=== PATIENT | male | born 1995 | race Two or more races ===

== ENCOUNTER 2022-02-17 16:34 | Emergency (ER) | payer MEDICAID, SELFPAY ==
[2022-02-17 17:07] VITALS: BP 142/107; PULSE 82; RESP 18; TEMP 36.6; O2SAT 98; BMI 30.4
--- NOTE | 2022-02-17 20:57 | ED_ITS ---
HPI - General Adult General Chief complaint: General Medical Stated complaint: Genital Issue/ Burn Time Seen by Provider: 02/17/22 20:57 Source: patient Mode of arrival: ambulatory Limitations: no limitations History of Present Illness HPI narrative: 26-year-old male presents for evaluation for painful open lesions on the shaft of his penis. Onset (ago): day(s) (4) Location: genitals Radiation: non-radiation Severity: moderate Severity scale (1-10): 6 Quality: burning Pain Consistency: constant Relieving factors: none Associated symptoms: denies other symptoms Related Data Previous Rx's Medication Instructions Recorded doxycycline monohydrate 100 mg 100 mg PO BID 14 days #28 tabs 02/17/22 tablet valacyclovir 1 gram tablet 1,000 mg PO DAILY #30 tabs 02/17/22 valacyclovir 1 gram tablet 1,000 mg PO Q12H 10 days #20 tabs 02/17/22 Allergies Allergy/AdvReac Type Severity Reaction Status Date / Time No Known Allergies Allergy Verified 02/17/22 17:11 Review of Systems Review of Systems: Constitutional: No Fever, No Chills Cardiovascular: No Chest Pain, No SOB Respiratory: No Cough, No Dyspnea Gastrointestinal: No Nausea, No Vomiting, No Diarrhea, No abdominal Pain Genitourinary: Positive painful genital lesions, No Dysuria, No Hematuria Skin: No Skin lacerations, No rash Neuro: No Weakness, No Numbness, No Paresthesias Yes all other systems are reviewed and are negative [facility] Past Medical History Attestation statement: The following information was validated with the patient. Source: old records reviewed Social History Social History Advance Directives: No Advance Directives Information Provided: No Physical Exam ED Vital Signs: Vital Signs - 24 hr 02/17/22 17:07 Temperature 97.8 F Pulse Rate 82 Respiratory Rate 18 Blood Pressure 142/107 H Pulse Oximetry 98 Oxygen Delivery Method Room Air BMI result Body Mass Index 30.4 Appearance: Alert. Oriented X3. No acute distress. Eyes: Pupils equal, round and reactive to light. ENT: Pharynx normal. Neck: Normal inspection. Neck supple. CVS: Normal heart rate and rhythm. Respiratory: No respiratory distress. Skin: Multiple open lesions to the shaft of the penis consistent with herpes Extremities: Gait balance and coordinated. Neuro: No motor deficit. No sensory deficit. Cranial nerves 2-12 intact. Course Course Course Narrative: 26-year-old male presents with several days of open painful lesions to the shaft of his penis. Visual examination indicates rash consistent with genital herpes. Patient does not report testicular pain, testicular exam is normal. Plan of care is to treat for STIs including coverage for syphilis with doxycycline for 14 days. Will treat with ceftriaxone 500 mg IM, and give valacyclovir twice a day for 10 days and give maintenance dosing. 21:06 patient's partner treated. Patient understands that this will be a chronic condition and that he will need to maintain safe sex practices to prev ent spreading. Patient verbalized understanding of and agrees to plan of care discharge home. Verbalized understanding of signs symptoms indicating need for emergent intervention. Medications Administered Discontinued Medications Generic Name Dose Route Start Last Admin Trade Name Freq PRN Reason Stop Dose Admin Ceftriaxone Sodium 500 mg/ 0 mg 02/17/22 21:04 02/17/22 21:35 Lidocaine HCl 1 ml IM 02/17/22 21:05 1 kit ONCE ONE Administration Doxycycline Monohydrate 100 mg 02/17/22 21:04 02/17/22 21:36 Doxycycline Monohydrate 100 Mg Capsule PO 02/17/22 21:05 100 mg ONCE ONE Administration Valacyclovir HCl 1,000 mg 02/17/22 21:04 02/17/22 21:36 Valacyclovir Hcl 1,000 Mg Tablet PO 02/17/22 21:05 1,000 mg ONCE ONE Administration Medical Decision Making Differential Diagnosis Differential Diagnoses: The differential diagnosis associated with the presentation includes Herpes, syphilis, gonorrhea, chlamydia Admission/Observation Consideration of admission/observation: Escalation of care including admission/observation considered Admission not considered for this patient External Record Review External record reviewed: Outpatient record Prescription Management I considered prescription management with: Antiviral and Antibiotic Discharge Plan Discharge Clinical Impression: Herpes genitalia, STI (sexually transmitted infection) Patient Disposition: Home, Self-Care Instructions: Sexually Transmitted Diseases (ED) Additional Instructions: Your evaluated for sexually transmitted infection. Please take valacyclovir 1000 mg twice a day for the next 10 days. Then take valacyclovir once daily for maintenance. Take doxycycline 100 mg twice a day for the next 14 days. This medication will cover you for syphilis, gonorrhea and chlamydia. You must complete the entire course of this medication. You were also treated for chlamydia and gonorrhea with ceftriaxone and doxycycline in the emergency department. Follow-up with [facility] for repeat testing. Refrain from sexual activity until symptoms clear. Thank you for choosing this emergency department for evaluation. Please follow-up with primary care physician as needed. Return to the emergency department for any new, concerning, or worsening symptoms. Prescriptions: New doxycycline monohydrate 100 mg tablet 100 mg PO BID 14 Days Qty: 28 0RF valacyclovir 1 gram tablet 1,000 mg PO Q12H 10 Days Qty: 20 0RF valacyclovir 1 gram tablet 1,000 mg PO DAILY Qty: 30 2RF Rx Instructions: Start this medication after the 10 day b.i.d. prescription. Interventions: ED Discharge Assessment Last Done: 02/17/22 21:39 Discharge Date/Time: 02/17/22 21:40
[2022-02-17] MEDS: cefTRIAXone sodium 500 MG, Lidocaine HCl 1 % MPF 1 ML IM (21:35)
[2022-02-17] MEDS: Doxycycline Monohydrate 100 MG CAPSULE PO (21:36)
[2022-02-17] MEDS: valACYclovir HCL 1,000 MG TABLET 1000 MG PO (21:36)
[2022-02-18 11:05] LABS: CT PCR NOT DETECTED (Not Detect.); NG PCR NOT DETECTED (Not Detect.)
== END 2022-02-17 21:40 | disposition home or self-care (01) ==
PROVIDERS: Emergency Provider Emergency Medicine
DX: B00.9 Herpesviral infection, unspecified (principal); A64 Unspecified sexually transmitted disease; Z79.899 Other long term (current) drug therapy
CPT/HCPCS: 0353U; 96372; 99282; 99284; J0696

== ENCOUNTER 2022-08-26 14:00 | Outpatient (AMB) | payer MEDICAID, SELFPAY ==
[2022-08-26 14:36] VITALS: BP 110/86; PULSE 78; O2SAT 98
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
== END 2022-08-26 15:22 | disposition home or self-care (01) ==
LOC: HO.HCC 14:00
PROVIDERS: Visit Provider Nurse Practitioner Psychiatric/Mental Health
DX: F10.20 Alcohol dependence, uncomplicated (principal)
CPT/HCPCS: 99204

== ENCOUNTER → 2022-08-26 14:00 | Outpatient (BNVA) | payer MEDICAID, SELFPAY | PROVIDERS: Visit Provider Nurse Practitioner Psychiatric/Mental Health | DX: F10.20 Alcohol dependence, uncomplicated (principal) | CPT/HCPCS: 80305; 99204 ==

== ENCOUNTER 2023-01-07 00:16 | Inpatient (IN) | payer MEDICAID, SELFPAY ==
[2023-01-07] VITALS (7 sets, daily range): BP systolic 125–152; BP diastolic 75–90; PULSE 88–101; RESP 14–20; TEMP 36.6–37; O2SAT 95–98; BMI 30.4
--- NOTE | ~2023-01-07 | XR_ITS ---
EXAMINATION: XR FEMUR, RIGHT XR KNEE, RIGHT CLINICAL INDICATION: Trauma, injury COMPARISON: None TECHNIQUE: 2 views of the right femur. 2 views of the right knee. FINDINGS: Alignment across the hip appears anatomic. There is a comminuted fracture of the distal femoral shaft with moderate displacement of fragments. Surrounding soft tissue swelling. Suboptimal assessment for alignment at the knee due to positioning. XR/XR femur RT 2V IMPRESSION: Comminuted displaced fracture of the distal femoral shaft.
--- NOTE | ~2023-01-07 | XR_ITS ---
EXAMINATION: XR FEMUR, RIGHT XR KNEE, RIGHT CLINICAL INDICATION: Trauma, injury COMPARISON: None TECHNIQUE: 2 views of the right femur. 2 views of the right knee. FINDINGS: Alignment across the hip appears anatomic. There is a comminuted fracture of the distal femoral shaft with moderate displacement of fragments. Surrounding soft tissue swelling. Suboptimal assessment for alignment at the knee due to positioning. XR/XR knee RT 2V IMPRESSION: Comminuted displaced fracture of the distal femoral shaft.
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
[2023-01-07] MEDS: Ibuprofen 600 MG TABLET PO (00:29)
--- OUTSIDE RECORDS SUMMARY | 2023-01-07 01:08 | XMS_ITS | Continuity of Care Document ---
Author Name Unknown Organization [facility] Address [address] [place] [address]- Care Team Providers Care All Purpose Clerk Name Role Phone Not on Staff, PCP Primary Care Physician Unavail able Encounter [facility] Date(s): 04/03/22 - 04/03/22 [facility] [address] [place] [address]- Encounter Diagnosis Tylenol ingestion(Final) - 04/03/22 Nausea with vomiting(Final) - 04/03/22 Tibia fracture(Final) - 04/03/22 Leg pain(Final) - 04/03/22 Discharge Disposition: A-D/C Home Attending Physician: Gabrielle Whitfield MD Admitting Physician: Gabrielle Whitfield MD Referring Physician: Not on Staff, Referring MD Allergies, Adverse Reactions, Alerts No Known Allergies Medications Dilaudid Inj 1 mg, Injection, IV Push Slowly, Every 4 hours, PRN for Pain , Severe, Routine, 04/03/22 17:35:00 EST Start Date: 04/03/22 Stop Date: 04/04/22 Status: Discontinued ibuprofen 600 mg oral tablet 1 tablet = 600 mg, By Mouth, Every 6 hours, # 40 tablet, 1 Refills, Maintenance, Tablet Start Date: 02/24/12 Status: Ordered oxyCODONE 5 mg oral capsule 1 capsule = 5 mg, By Mouth, Every 6 hours, PRN as needed for pain, # 19 capsule, 0 Refills, Acute 04/10/22 18:19:00 EST, 04/03/22 18:18:00 EST, Capsule, Partial fill upon patient request if the prescription is for a schedule II opioid drug. Start Date: 04/03/22 Stop Date: 04/10/22 Status: Ordered oxyCODONE 5 mg oral tablet 5 mg, 1, tablet, By Mouth, Every 4 hours, PRN, # 18 tablet, Refills 0, Tot. Refills 0, Maintenance,Pain , Severe, 03/29/22 20:06:00 EST, Route to Pharmacy Electronically, [facility]/pharmacy #[id number], Partialfill upon patient request if the prescription is fo... Start Date: 03/29/22 Status: Ordered Tylenol 325 mg oral capsule 2 capsule = 650 mg, By Mouth, Every 4 hours, # 90 capsule, 0 Refills, Maintenance, 10/28/15 15:04:19 Start Date: 10/28/15 Status: Ordered Problem List Condition Confirmation Course Effective Dates Status Health St atus Informant Obese class I Confirmed Active Results Radiology Reports * Exam Date Time Procedure Performing Provider Status 04/03/22 2:56 PM Ankle Min 3 Views Left Alia Pérez (Verified) Notes: (Ankle Min 3 Views Left) Reason For Exam: Pain RESULT: Ankle Min 3 Views Left Tibia/Fibula 2 Views Left, Ankle Min 3 Views Left INDICATION: Left lower extremity pain with known fracture. COMPARISON: Left knee radiograph 03/29/2022. FINDINGS: TIBIA/FIBULA: Minimally displaced fracture involving the tibial spine appears similar to prior. Partially visualized at least small joint effusion, decreased when compared to prior. Normal soft tissues. ANKLE: No evidence of acute or healing fracture or bone lesion. Os peroneum, a normal variant. Intact ankle mortise and talar dome. No arthritic changes. Normal soft tissues. IMPRESSION: Unchanged minimally displaced fracture involving the tibial spine. No new fractures or acute osseous abnormality. I have personally reviewed the images and I agree with this report. WSN: [id number] Ordering Physician: Gabrielle Whitfield Dictated By: Tom Armstrong MD Dictated Date/Time: 04/03/22 3:08 pm Reviewed By: Zion Muller MD Signed By: Zion Muller MD Signed Date/Time: 04/03/22 3:13 pm Transcribed By: NITIN Transcribed Date/Time: 04/03/22 3:05 pm * Exam Date Time Procedure Performing Provider Status 04/03/22 2:56 PM Tibia/Fibula 2 Views Left Lynsey Pérez (Verified) Notes: (Tibia/Fibula 2 Views Left) Reason For Exam: Pain RESULT: Tibia/Fibula 2 Views Left Tibia/Fibula 2 Views Left, Ankle Min 3 Views Left INDICATION: Left lower extremity pain with known fracture. COMPARISON: Left knee radiograph 03/29/2022. FINDINGS: TIBIA/FIBULA: Minimally displaced fracture involving the tibial spine appears similar to prior. Partially visualized at least small joint effusion, decreased when compared to prior. Normal soft tissues. ANKLE: No evidence of acute or healing fracture or bone lesion. Os peroneum, a normal variant. Intact ankle mortise and talar dome. No arthritic changes. Normal soft tissues. IMPRESSION: Unchanged minimally displaced fracture involving the tibial spine. No new fractures or acute osseous abnormality. I have personally reviewed the images and I agree with this report. WSN: [id number] Ordering Physician: Gabrielle Whitfield Dictated By: Tom Armstrong MD Dictated Date/Time: 04/03/22 3:08 pm Reviewed By: Zion Muller MD Signed By: Zion Muller MD Signed Date/Time: 04/03/22 3:13 pm Transcribed By: NITIN Transcribed Date/Time: 04/03/22 3:05 pm Vital Signs Most recent to oldest [Reference Range]: 1 2 3 Height 170 cm (04/03/22 2:15 PM) 170 cm (04/03/22 2:13 PM) Weight 90.8 kg (04/03/22 2:15 PM) 90.8 kg (04/03/22 2:13 PM) Oxygen Saturation [94-100 %] 98 % (04/03/22:23 PM) 99 % (04/03/22 5:00 PM) 99 % (04/03/22 3:30 PM) Pulse Rate [55-90 bpm] 66 bpm (04/03/22:23 PM) 71 bpm (04/03/22 5:00 PM) 73 bpm (04/03/22 3:30 PM) Body Mass Index [18.5-24.99 kg/m2] 31.42 kg/m2 *>HHI* (04/03/22 2:13 PM) Blood Pressure [90-138/55-84 mm Hg] 136/95mm Hg (04/03/22 6:23 PM) 132/93mm Hg (04/03/22 5:00 PM) 138/91mm Hg (04/03/22 3:30 PM) Respiratory Rate [16-30 br/min] 17 br/min (04/03/22:23 PM) 20 br/min (04/03/22 5:06 PM) 20 br/min (04/03/22 5:00 PM) Temperature [96.8-100.4 DegF] 98.0 DegF (04/03/22 6:23 PM) 98.0 DegF (04/03/22 5:00 PM) 98.0 DegF (04/03/22 3:30 PM) Mode of Delivery (Oxygen) Room air (04/03/22 6:23 PM) Room air (04/03/22 5:00 PM) Room air (04/03/22 3:30 PM) Blood pressure sites Arm, right (04/03/22 6:23 PM) Arm, right (04/03/22 5:00 PM) Arm, right (04/03/22 3:30 PM) Temperature Route Oral (04/03/22 6:23 PM) Oral (04/03/22 5:00 PM) Oral (04/03/22 3:30 PM) Dry Weight 90.8 kg (04/03/22 2:15 PM) 90.8 kg (04/03/22 2:13 PM) Weight Obtained Via Patient/family state d (04/03/22 2:13 PM) XR Ankle - left GE 3 Views * [facility] , CIS S: TRANSCRIBE Renzo SHIRLEY, Zion W: VERIFY Tom Armstrong MD: SIGN Event Display: Result: Authored Date: [id number] Tibia/Fibula 2 Views Left, Ankle Min 3 Views Left INDICATION: Left lower extremity pain with known fracture. COMPARISON: Left knee radiograph 03/29/2022. FINDINGS: TIBIA/FIBULA: Minimally displaced fracture involving the tibial spine appears similar to prior. Partially visualized at least small joint effusion, decreased when compared to prior. Normal soft tissues. ANKLE: No evidence of acute or healing fracture or bone lesion. Os peroneum, a normal variant. Intact ankle mortise and talar dome. No arthritic changes. Normal soft tissues. IMPRESSION: Unchanged minimally displaced fracture involving the tibial spine. No new fractures or acute osseous abnormality. I have personally reviewed the images and I agree with this report. WSN: [id number] Ordering Physician: Gabrielle Whitfield Dictated By: Tom Armstrong MD Dictated Date/Time: 04/03/22 3:08 pm Reviewed By: Zion Muller MD Signed By: Zion Muller MD Signed Date/Time: 04/03/22 3:13 pm Transcribed By: NITIN Transcribed Date/Time: 04/03/22 3:05 pm XR Tibia and Fibula - left 2 Views * [facility] , CIS S: TRANSCRIBE Zion Muller MD: VERIFY Tom Armstrong MD: SIGN Event Display: Result: Authored Date: [id number] Tibia/Fibula 2 Views Left, Ankle Min 3 Views Left INDICATION: Left lower extremity pain with known fracture. COMPARISON: Left knee radiograph 03/29/2022. FINDINGS: TIBIA/FIBULA: Minimally displaced fracture involving the tibial spine appears similar to prior. Partially visualized at least small joint effusion, decreased when compared to prior. Normal soft tissues. ANKLE: No evidence of acute or healing fracture or bone lesion. Os peroneum, a normal variant. Intact ankle mortise and talar dome. No arthritic changes. Normal soft tissues. IMPRESSION: Unchanged minimally displaced fracture involving the tibial spine. No new fractures or acute osseous abnormality. I have personally reviewed the images and I agree with this report. WSN: [id number] Ordering Physician: Gabrielle Whitfield Dictated By: Tom Armstrong MD Dictated Date/Time: 04/03/22 3:08 pm Reviewed By: Zion Muller MD Signed By: Zion Muller MD Signed Date/Time: 04/03/22 3:13 pm Transcribed By: NITIN Transcribed Date/Time: 04/03/22 3:05 pm Patient Care team information Care Team Personnel Name: Not on Staff, PCP Position: [facility] Physician (General Medicine) Member Role: PCP Name: Gabrielle Whitfield MD Position: [facility] ED Medicine MD Member Role: Admitting Physician Address: Address: [address] [place] [address] [place] [address]- Name: Nikki Sosa RN Position: [facility] ED RN W/OE and Tasks Member Role: Patient Care Provider Care Team Related Persons Name: NO, ONE Name: OLIVER LIMA Address: home [address] [place] [id number]
--- OUTSIDE RECORDS SUMMARY | 2023-01-07 01:08 | XMS_ITS | Continuity of Care Document ---
Author Name Unknown Organization [facility] ter Address [address] [place] [address]- Care Team Providers Care Hvac Service Manager Name Role Phone Not on Staff, PCP Primary Care Physician Unavail able Encounter [facility] Date(s): 11/25/22 - 11/26/[address] [address]- Discharge Disposition: A-D/C Walkout Attending Physician: Not on Staff, Attending MD Admitting Physician: Not on Staff, Admitting MD Referring Physician: Not on Staff, Referring MD Allergies, Adverse Reactions, Alerts No Known Allergies Medications ibuprofen 600 mg oral tablet 1 tablet = 600 mg, By Mouth, Every 6 hours, # 40 tablet, 1 Refills, Maintenance, Tablet Start Date: 02/24/12 Status: Ordered oxyCODONE 5 mg oral tablet 5 mg, 1, tablet, By Mouth, Every 4 hours, PRN, # 18 tablet, Refills 0, Tot. Refills 0, Maintenance,Pain , Severe, 03/29/22 20:06:00 EST, Route to Pharmacy Electronically, [facility]/pharmacy #[id number], Partialfill upon patient request if the prescription is fo... Start Date: 03/29/22 Status: Ordered Tylenol 325 mg oral capsule 2 capsule = 650 mg, By Mouth, Every 4 hours, # 90 capsule, 0 Refills, Maintenance, 10/28/15 15:04:19 Start Date: 10/28/15 Status: Ordered Problem List Condition Confirmation Course Effective Dates Status Health St atus Informant Obese class I Confirmed Active Vital Signs Most recent to oldest [Reference Range]: 1 Oxygen Saturation [94-100 %] 96 % (11/26/22 12:06 AM) Pulse Rate [55-90 bpm] 124 bpm *H* (11/26/22 12:06 AM) Mode of Delivery (Oxygen) Room air (11/26/22 12:06 AM) Patient Care team information Care Team Personnel Name: Not on Staff, PCP Position: S Physician (General Medicine) Member Role: PCP Care Team Related Persons Name: NO, ONE Name: OLIVER LIMA Address: [address] [address]
--- OUTSIDE RECORDS SUMMARY | 2023-01-07 01:08 | XMS_ITS | Continuity of Care Document ---
Author Name Unknown Organization [facility] Address [address] [place] [address]- Care Team Providers Care Porter Luggage Name Role Phone Not on Staff, PCP Primary Care Physician Unavail able Encounter [facility] Date(s): 11/29/22 - 11/30/[address] [address]- Discharge Disposition: A-D/C Home Attending Physician: Marcin Motley MD Admitting Physician: Marcin Motley MD Referring Physician: Not on Staff, Referring [...] 03/29/22 20:06:00 EST, Route to Pharmacy Electronically, [facility]/pharmacy #[id number], Partialfill upon patient request [...] oldest [Reference Range]: 1 2 3 Height 173 cm (11/29/22 10:22 PM) 173 cm (11/29/22 10:16 PM) 173 cm (11/29/22 10:15 PM) Weight 97 kg (11/29/22 10:16 PM) Oxygen Saturation [94-100 %] 97 % (11/29/22 11:00 PM) 97 % (11/29/22 10:22 PM) 97 % (11/29/22 10:16 PM) Pulse Rate [55-90 bpm] 90 bpm (11/29/22 11:21 PM) 120 bpm *H* (11/29/22 10:22 PM) 124 bpm *H* (11/29/22 10:15 PM) Blood Pressure [90-138/55-84 mm Hg] 141/89mm Hg *H* (11/29/22 11:00 PM) 157/104mm Hg *H* (11/29/22 10:22 PM) Respiratory Rate [16-30 br/min] 18 br/min (11/29/22 11:00 PM) 20 br/min (11/29/22 10:22 PM) 18 br/min (11/29/22 10:15 PM) Temperature [96.8-100.4 DegF] 98.6 DegF (11/29/22 11:00 PM) 98.3 DegF (11/29/22 10:16 PM) Mode of Delivery (Oxygen) Room air (11/29/22 11:00 PM) Room air (11/29/22 10:22 PM) Room air (11/29/22 10:15 PM) Blood pressure sites Arm, right (11/29/22 11:00 PM) Arm, right (11/29/22 10:22 PM) Temperature Route Oral (11/29/22 11:00 PM) Temporal (11/29/22 10:16 PM) Dry Weight 97 kg (11/29/22 10:16 PM) Dry Weight Obtained Via Standing scale (11/29/22 10:16 PM) Note * Jesus SHIRLEY, Estefania Barnard: PERFORM Event Display: Patient Education Leaflets Authored Date: [id number] Alcohol Abuse ?? [id number] Alcohol Abuse Alcoholic drinks harm you when you have too many of them. No set number of drinks means too much. Drinking that affects your life or your health is called alcohol abuse. Alcohol abuse can hurt your relationships with others. You may lose friends, a spouse, or even your job. You may be abusing alcohol if any of the following are true for you: ??? Duties at home or with child guidance counselor suffer because of drinking. ??? Duties at work or in school suffer because of drinking. ??? You have missed work or school because of drinking. ??? You use alcohol while driving or using machinery. ??? You have legal problems such as arrests because of drinking. ??? You keep drinking even though it causes serious problems in your life. Health problems Alcohol abuse causes many health problems.??Sometimes this can happen after only drinking a ???little. ??The effects depend on how much you drink at one time and how often you drink. The effects also depend on how long you drink. For example, months, years, or decades.??Alcohol affects all parts of your body Brain Alcohol affects the central nervous system. It can damage parts of the brain that control your balance and gait, memory, thinking, and emotions. It can cause: ??? Memory loss ??? Blackouts ??? Depression ??? Agitation ??? Sleep problems ??? Seizures These changes may be lobsterman (permanent). Heart and blood vessels Alcohol can damage heart muscle (cardiomyopathy). This can lead to: ??? Trouble breathing ??? Irregular heartbeat ??? Atrial fibrillation ??? Leg swelling ??? Heart failure Alcohol also makes the blood vessels stiff. This causes high blood pressure. All of these problems raise your risk of having a heart attack or stroke. Liver Alcohol causes fat to build up in the liver. This affects how the liver works. Alcohol also raises the risk for hepatitis. It can cause: ??? Belly (abdominal) pain ??? Belly swelling ??? Loss of appetite ??? Yellowed eyes or skin (jaundice) ??? Bleeding problems ??? Cirrhosis This can make it harder for you to fight off infections. The liver changes keep it from removing toxins in your blood that can cause brain disease (encephalopathy). This condition cause: ??? Confusion ??? Changed level of consciousness ??? Personality changes ??? Memory loss ??? Seizures, coma, and The liver changes can also cause the veins in your esophagus and stomach to become thin and swollenwith blood (varices). This can cause bleeding and vomiting of blood. Pancreas Alcohol can cause swelling (inflammation) of the pancreas (pancreatitis). This can cause belly pain, fever, and diabetes. Immune system Alcohol weakens your immune system. This makes it harder for you to fight infections and colds. It also makes it more likely for you to get pneumonia and tuberculosis. Cancer Alcohol raises the risk for several types of cancer. These include cancer of the mouth, esophagus, pharynx, larynx, liver, and breast. Sexual function Alcohol can lead to sexual problems. ?? Home care These guidelines will help you deal with alcohol abuse: ??? Admit you have a problem with alcohol. ??? Ask for help from your healthcare provider. Also ask for help from trusted family members or close friends. ??? Get help from people trained in dealing with alcohol abuse. This may be one-on-one counseling or group therapy. Or it may be an alcohol treatment program. ??? Join a self-help group for alcohol abuse such as Alcoholics Anonymous. ??? Stay away from people who abuse alcohol or tempt you to drink. ?? Follow-up care Follow up with your healthcare provider, or as advised. Contact these groups to get help: ??? Alcoholics Anonymous (AA) at www.aa.org. Or check the phone book for meetings near you. ??? National Alcohol and Substance Abuse Information Center (NASAIC) at www.addictioncareInotek Pharmaceuticals or 373-247-2072 ??? National [place] on Alcoholism and Drug Dependence (NCADD) at www.ncadd.org or 649-MRO-MFXS (225-938-3536) ?? Call 911 Call 911 if any of these occur: ??? Trouble breathing or slow, irregular breathing ??? Chest pain ??? Sudden weakness on one side of your body or sudden trouble speaking ??? Heavy bleeding or vomiting blood ??? Very drowsy or trouble awakening ??? Fainting or loss of consciousness ??? Rapid heart rate ??? Seizure ?? When to seek medical care Call your healthcare provider right away if any of these occur:? Confusion ??? Seeing, hearing, or feeling things that aren???t there (hallucinations) ??? Pain in your upper belly that gets worse ??? Vomiting that continues, vomiting with blood, or black or tarry stools ??? Severe shakiness ?? Last Reviewed Date: 2021 ?? [id number] [employer]. All rights reserved. This information is not intended as a substitute for professional medical care. Always follow your healthcare professional's instructions. ?? * Jesus SHIRLEY, Estefania Barnard: PERFORM Event Display: Patient Education Leaflets Authored Date: [id number] Chest Bruise (Contusion) ?? [id number] Chest Bruise (Contusion) The chest wall runs from the shoulders to the diaphragm or bottom of the ribs. It includes the front and back of the rib cage. It also includes the breastbone, shoulders, and collarbones. A blunt trauma, such as during a car accident or fall, can injure the chest wall. This injury is called a chestwall bruise (contusion). Injury to the chest wall may result in pain, tenderness, bruising, and swelling. It may also resultin broken ribs and injured muscles. These cause pain, often during breathing. If 1 or more ribs arebroken in several areas, the chest wall may become unstable and painful. This may cause serious breathing trouble. In the emergency room or urgent care center, any broken bones or other injuries will be evaluated. You may be given medicine for pain. Broken ribs often heal without further treatment. Sometimes it'shard to tell if a rib is broken or just bruised. Broken ribs and bruised ribs are often treated thesame. A broken shoulder or collarbone may be taped or supported with a sling. Home care Follow these guidelines when caring for yourself at home: ??? Rest. Don???t do any heavy lifting orstrenuous activity. Don???t do any activity that causes pain. ??? Put an ice pack on the injured area. Do this for 20 minutes every 1 to 2 hours the first day. You can make an ice pack by placing icecubes in a plastic bag that seals at the top. Wrap the bag in a thin towel. Use the ice pack 3 to 4 times a day for the next 2 days. Then use the ice pack as needed to ease pain and swelling. ??? After 1 to 2 days, you may put a warm compress on the area. Do this for 10 minutes several times a day.A warm compress is a clean cloth that???s damp with warm water. ??? Hold a pillow to the affected area when you cough. This will help ease pain. ??? You may use xnwk-wsk-erhiedy pain medicine, such as acetaminophen, naproxen, or ibuprofen, to control pain, unless another pain medicine was prescribed. If you have chronic liver or kidney disease, talk with your healthcare provider before using these medicines. Also talk with your provider if you???ve had a stomach ulcer or gastrointestinal bleeding. ?? Follow-up care Follow up with your healthcare provider, or as advised. ?? When to get medical advice Call your healthcare provider right away if any of these occur: ??? New belly (abdominal) pain thatgets worse ??? Fever of 100.4??F (38??C) or higher, or as advised by your provider ?? Call 911 Call 911 if any of the following occur:? Dizziness, weakness, or fainting ??? Shortness of breath, trouble breathing, or breathing fast ??? Chest pain gets worse when you breathe ??? Severe painthat comes on suddenly or lasts more than an hour ?? Last Reviewed Date: 2021 ?? [id number] [employer]. All rights reserved. This information is not intended as a substitute for professional medical care. Always follow your healthcare professional's instructions. ?? Patient Care team information Care Team Personnel Name: Not on Staff, PCP Position: [facility] Physician (General Medicine) Member Role: PCP Name: Estefania Lee MD Position: [facility] ED Medicine MD Member Role: ED Attending Physician Address: Address: [address] [place] [address]- Name: Alia Awan Position: [facility] ED TA [facility] Member Role: Patient Care Provider Name: Alexander Millard RN Position: [facility] ED RN W/OE and Tasks Member Role: Patient Care Provider Care Team Related Persons Name: NO, ONE Name: OLIVER LIMA Address: home [address] [place] [address]
--- OUTSIDE RECORDS SUMMARY | 2023-01-07 01:08 | XMS_ITS | Continuity of Care Document ---
Author Name Unknown Organization [facility] Address [address] [place] [address]- Care Team Providers Care Tab Cutter Name Role Phone Faye Reza MD Primary Care Physician [phone] Encounter [facility] Date(s): 02/22/19 - 03/01/19 [facility] [address] [place] [address]- [facility] Attending Physician: Cristiano Sy MD Admitting Physician: Cristiano Sy MD Referring Physician: Faye Reza MD Allergies, Adverse Reactions, Alerts Substance Reaction Severity Status NKA Active Medications ibuprofen 600 mg oral tablet 1 tablet = 600 mg, By Mouth, Every 6 hours, # 40 tablet, 1 Refills, Maintenance, Tablet Start Date: 02/24/12 Status: Ordered Tylenol 325 mg oral capsule 2 capsule = 650 mg, By Mouth, Every 4 hours, # 90 capsule, 0 Refills, Maintenance, 10/28/15 15:04:19 Start Date: 10/28/15 Status: Ordered
--- OUTSIDE RECORDS SUMMARY | 2023-01-07 01:08 | XMS_ITS | Continuity of Care Document ---
Author Name Unknown Organization [facility] Address [address] [place] [address]- Care Team Providers Care District Extension Service Agent Name Role Phone Juaquin SHIRLEY, Faye Baer Primary Care Physician [phone] [place] [facility] [place](s): 04/05/19 - 04/15/19 [facility] [address] [place] [address]- [facility] Attending Physician: Rick Mariano Admitting Physician: AdmRick vivas Referring Physician: Admtr, Ar8 Allergies, Adverse Reactions, Alerts Substance Reaction Severity [...]
--- OUTSIDE RECORDS SUMMARY | 2023-01-07 01:09 | XMS_ITS | Continuity of Care Document ---
Author Name Unknown Organization [facility] Address [address] [place] [address]- Care Team Providers Care Bilingual Teacher Name Role Phone Not on Staff, PCP Primary Care Physician Unavail able Encounter [facility] [place] Date(s): 09/15/20 - 09/15/20 [facility] [address] [place] [address]- Discharge Disposition: A-D/C Home Attending Physician: Bob Hester MD Admitting Physician: Bob Hester MD Referring Physician: Not on Staff, Referring MD Allergies, Adverse Reactions, Alerts Substance Reaction [...] 10/28/15 15:04:19 Start Date: 10/28/15 Status: Ordered Vital Signs Most recent to oldest [Reference Range]: 1 Height 178 cm (09/15/20 12:38 PM) Weight 97 kg (09/15/20 12:38 PM) Oxygen Saturation [94-100 %] 100 % (09/15/20 12:38 PM) Pulse Rate [55-90 bpm] 92 bpm *H* (09/15/20 12:38 PM) Blood Pressure [90-138/55-84 mm Hg] 145/ 86mm Hg *H* (09/15/20 12:38 PM) Respiratory Rate [16-30 br/min] 19 br/mi n (09/15/20 12:38 PM) Temperature [96.8-100.4 DegF] 97.8 DegF (09/15/20 12:38 PM) Mode of Delivery (Oxygen) Room air (09/15/20 12:38 PM) Temperature Route Oral (09/15/20 12:38 PM) Dry Weight 97 kg (09/15/20 12:38 PM)
--- OUTSIDE RECORDS SUMMARY | 2023-01-07 01:09 | XMS_ITS | Continuity of Care Document ---
Author Name Unknown Organization [facility] Address [address] [place] [address]- Care Team Providers Care Construction Plumber Name Role Phone Faye Reza MD Primary Care Physician [place] [facility] [place] 03/26/[address] [address] [phone] Discharge Disposition: A-D/C Home Attending Physician: Cristiano Sy MD Admitting Physician: Cristiano Sy MD Referring Physician: Cristiano Sy MD Allergies, Adverse Reactions, Alerts Substance Reaction [...] 10/28/15 15:04:19 Start Date: 10/28/15 Status: Ordered Results Radiology Reports * Exam Date Time Procedure Performing Provider Status 03/26/19 8:00 AM C-Arm < 1 Hour Leyla Quick; Auth (V erified) Notes: (C-Arm < 1 Hour) Reason For Exam: Right hand hardware removal RESULT: C-Arm < 1 Hour C-Arm < 1 Hour INDICATION: Reason: Right hand hardware removal COMPARISONS: None TECHNIQUE: Fluoroscopy support was provided. There was no radiologist in attendance. Fluoroscopy time: 3 seconds. Exposure: 0.15 mGy FINDINGS: Single intraoperative fluoroscopic images status post removal of fixation pin from the the fifth metacarpal. Deformity of the fifth metacarpal related to prior fracture. See operative report for further details. IMPRESSION: See above. WSN: [id number] Dictated By: Roni Scott MD Dictated Date/Time: 03/26/19 11:28 a Reviewed By: Roni Scott MD Signed By: Roni Scott MD Signed Date/Time: 03/26/19 11:28 am Transcribed By: NITIN Transcribed Date/Time: 03/26/19 11:26 am Vital Signs Most recent to oldest [Reference Range]: 1 2 3 4 Height 172 cm (03/26/19 6:36 AM) Oxygen Saturation [94-100 %] 97 % (03/26/19 8:45 AM) 97 % (03/26/19 8:30 AM) 99 % (03/26/19 8:15 AM) Pulse Rate [55-90 bpm] 79 bpm (03/26/19 6:36 AM) Blood Pressure [90-138/55-84 mm Hg] 133/90mm Hg (03/26/19 8:45 AM) 116/83mm Hg (03/26/19 8:30 AM) 111/60mm Hg (03/26/19 8:15 AM) Respiratory Rate [16-30 br/min] 15 br/min *L* (03/26/19 8:48 AM) 15 br/min *L* (03/26/19 8:45 AM) 15 br/min *L* (03/26/19 8:30 AM) 11 br/min *L* (03/26/19 8:30 AM) Temperature [96.8-100.4 DegF] 98.6 DegF (03/26/19 8:11 AM) 98.0 DegF (03/26/19 6:36 AM) Liters per Minute 6 L/min (03/26/19 8:11 AM) Mode of Delivery (Oxygen) Room air (03/26/19 8:45 AM) Room air (03/26/19 8:30 AM) Simple face mask (03/26/19 8:11 AM) Blood pressure sites Arm, right (03/26/19 6:36 AM) Temperature Route Temporal (03/26/19 8:11 AM) Temporal (03/26/19 6:36 AM) Dry Weight 91.8 kg (03/26/19 6:36 AM) Dry Weight Obtained Via Standing scale (03/26/19 6:36 AM)
--- OUTSIDE RECORDS SUMMARY | 2023-01-07 01:09 | XMS_ITS | Continuity of Care Document ---
Author Name Unknown Organization [facility] Address [address] [place] [address]- Care Team Providers Care Mimeographer Name Role Phone Faye Reza MD Primary Care Physician [place] [facility] [place]12/19 [facility] [address] [place] [address]- [facility] Attending Physician: Cristiano Sy MD Admitting Physician: [...]
--- OUTSIDE RECORDS SUMMARY | 2023-01-07 01:09 | XMS_ITS | Continuity of Care Document ---
Author Name Unknown Organization [facility] Address [address] [place] [address]- Care Team Providers Care Toeing Stockings Name Role Phone Not on Staff, PCP Primary Care Physician Unavail able Encounter [facility] [place] Date(s): 03/29/22 - 03/29/[address] [address]- Discharge Disposition: A-D/C Home Attending Physician: Gabrielle Orozco MD Admitting Physician: Gabrielle Orozco MD Referring Physician: Not on Staff, Referring MD Allergies, Adverse Reactions, Alerts No Known Allergies Medications Dilaudid Inj 1 mg, Injection, IV Push Slowly, Every 15 minutes for 3 doses/times, PRN for Pain , Moderate, and SBP greater than 100, STAT, 03/29/22 19:23:00 EST, Stop date Limited # of times Start Date: 03/29/22 Status: Ordered ibuprofen 600 mg oral tablet 1 tablet = 600 mg, By Mouth, Every 6 hours, # 40 tablet, 1 Refills, Maintenance, Tablet Start Date: 02/24/12 Status: Ordered oxyCODONE 5 mg oral tablet 5 mg, 1, tablet, By Mouth, Every 4 hours, PRN, # 18 tablet, Refills 0, Tot. Refills 0, Maintenance,Pain , Severe, 03/29/22 20:06:00 EST, Route to Pharmacy Electronically, [facility]/pharmacy #[id number], Partialfill upon patient request if the prescription is fo... Start Date: 03/29/22 Status: Ordered Tylenol 325 mg oral capsule 2 capsule = 650 mg, By Mouth, Every 4 hours, # 90 capsule, 0 Refills, Maintenance, 10/28/15 15:04:19 Start Date: 10/28/15 Status: Ordered Results Radiology Reports * Exam Date Time Procedure Performing Provider Status 03/29/22 6:35 PM Knee 1 or 2 Views Left Vickie Page; Auth (Verified) Notes: (Knee 1 or 2 Views Left) Reason For Exam: with Pain;Trauma RESULT: Knee 1 or 2 Views Left Knee 1 or 2 Views Left, 2 views Hx of Present Illness: ? L knee dislocation, patient fell after jumping fence, approximately 6 feetand landed on both feet. Instantly felt pain, L knee swelling and +deformity.; Reason: Trauma; withPain; Clinical Question(s): Fracture COMPARISON: None. FINDINGS: There is lucency surrounding the tibial spine with mild displacement seen on the lateral view. There is a moderate joint effusion. IMPRESSION: Displaced fracture involving the tibial spine with moderate joint effusion. WSN: [id number] Ordering Physician: Gabrielle Orozco Dictated By: Wen Calles MD Dictated Date/Time: 03/29/22 6:43 pm Reviewed By: Wen Calles MD Signed By: Wen Calles MD Signed Date/Time: 03/29/22 6:43 pm Transcribed By: NITIN Transcribed Date/Time: 03/29/22 6:42 pm Vital Signs Most recent to oldest [Reference Range]: 1 2 3 Height 170 cm (03/29/22 5:32 PM) Weight 91 kg (03/29/22 5:32 PM) Oxygen Saturation [94-100 %] 97 % (03/29/22 8:29 PM) 96 % (03/29/22 5:32 PM) Pulse Rate [55-90 bpm] 98 bpm *H* (03/29/22 8:29 PM) 112 bpm *H* (03/29/22 5:32 PM) Blood Pressure [90-138/55-84 mm Hg] 136/94mm Hg (03/29/22 8:29 PM) 120/83mm Hg (03/29/22 5:32 PM) Respiratory Rate [16-30 br/min] 18 br/min (03/29/22 9:08 PM) 20 br/min (03/29/22 8:38 PM) 20 br/min (03/29/22 8:33 PM) Temperature [96.8-100.4 DegF] 98 DegF (03/29/22 8:29 PM) 97.8 DegF (03/29/22 5:32 PM) Mode of Delivery (Oxygen) Room air (03/29/22 8:29 PM) Room air (03/29/22 5:32 PM) Blood pressure sites Arm, right (03/29/22 5:32 PM) Temperature Route Temporal (03/29/22 8:29 PM) Oral (03/29/22 5:32 PM) Dry Weight 91 kg (03/29/22 5:32 PM) Note * Gabrielle Orozco MD: PERFORM Event Display: Patient Education Leaflets Authored Date: Leg Fracture ?? [id number] Leg Fracture You have a break (fracture) of the leg. A fracture is treated with a splint, cast, or special boot.It will usually take about 8 to 12 weeks for the fracture to heal, but it can take longer in some cases. If you have a severe injury, you may need surgery to fix it. Home care Follow these guidelines when caring for yourself at home: ??? You will be given a splint, cast, boot, or other device to keep the injured area from moving. Unless you were told otherwise, use crutches or a walker. Don???t put weight on the injured leg until your healthcare provider says you can do so. (You can rent crutches and a walker at many pharmacies and surgical or orthopedic supply stores.) ??? Keep your leg elevated (raised) to reduce pain and swelling. When sleeping, put a pillow underthe injured leg. When sitting, support the injured leg so it's above your heart. This is very important during the first 2 days (48 hours). ??? Put an ice pack on the injured area. Do this for 20 minutes every 1 to 2 hours the first day for pain relief. You can make an ice pack by wrapping a plastic bag of ice cubes in a thin towel. As the ice melts, be careful that the cast, splint, or boot doesn???t get wet. You can put the ice pack directly over the splint or cast. Continue using the ice pack 3 to 4 times a day for the next 2 days. Then use the ice pack as needed to ease pain and swelling.??? Keep the cast, splint, or boot completely dry at all times. Bathe with your cast, splint, or boot out of the water. Protect it with 2 layers of plastic, such as 2 plastic bags, rubber-banded or taped at the top end. Or use a waterproof shield. If a boot or fiberglass cast or splint gets wet, you can dry it with a economics department chair on the cool setting. ??? You may use acetaminophen or ibuprofen to control pain, unless another pain medicine was prescribed. If you have chronic liver or kidney disease, talk with your healthcare provider before using these medicines. Also talk with your provider if you???ve had a stomach ulcer or gastrointestinal bleeding, or if you take a blood thinner. ??? Don???t put creams or objects under the cast if you have itching. ?? Follow-up care Follow up with your healthcare provider as advised. This is to make sure the bone is healing the way it should. If a splint was put on, it may be converted to a cast at your next visit. X-rays may be taken. You will be told of any new findings that may affect your care. ?? When to get medical advice Call your healthcare provider right away if any of the following occur: ??? The cast or splint cracks ??? The plaster cast or splint becomes wet or soft ??? The fiberglass cast or splint stays wet for more than 24 hours ??? Bad odor from the cast or wound fluid stains the cast ??? Tightness or painunder the cast or splint gets worse ??? Toes become swollen, cold, blue, numb, or tingly ??? You can???t move your toes ??? Skin around cast or splint becomes red or irritated ??? Fever of 100.4??F (38??C) or higher, or as directed by your healthcare provider ??? Shaking chills ?? Last Reviewed Date: 2022 ?? 8260-2862 The [employer]. All rights reserved. This information is not intended as a substitute for professional medical care. Always follow your healthcare professional's instructions. ?? XR Knee - left 1 or 2 Views * BHSPowerscribe , CIS S: TRANSCRIBE Marli SHIRLEY, Wen M: VERIFY Event Display: Result: Authored Date: [id number] Knee 1 or 2 Views Left, 2 views Hx of Present Illness: ? L knee dislocation, patient fell after jumping fence, approximately 6 feetand landed on both feet. Instantly felt pain, L knee swelling and +deformity.; Reason: Trauma; withPain; Clinical Question(s): Fracture COMPARISON: None. FINDINGS: There is lucency surrounding the tibial spine with mild displacement seen on the lateral view. There is a moderate joint effusion. IMPRESSION: Displaced fracture involving the tibial spine with moderate joint effusion. WSN: [id number] Ordering Physician: Gabrielle Orozco Dictated By: Wen Calles MD Dictated Date/Time: 03/29/22 6:43 pm Reviewed By: Wen Calles MD Signed By: Wen Calles MD Signed Date/Time: 03/29/22 6:43 pm Transcribed By: NITIN Transcribed Date/Time: 03/29/22 6:42 pm Patient Care team information Care Team Personnel Name: Not on Staff, PCP Position: [facility] Physician (General Medicine) Member Role: PCP Name: Aristeo Johnston RN Position: [facility] ED RN W/OE and Tasks Member Role: Patient Care Provider Name: Gabrielle Orozco MD Position: [facility] ED Medicine MD Member Role: Admitting Physician Address: Address: [address] [place] [address]- Name: Hill Syed RN Position: [facility] ED RN W/OE and Tasks Member Role: Patient Care Provider Care Team Related Persons Name: NO, ONE Name: OLIVER LIMA Address: home [address] [place] [address]
--- OUTSIDE RECORDS SUMMARY | 2023-01-07 01:09 | XMS_ITS | Continuity of Care Document ---
Author Name Unknown Organization [facility] Address [address] [place] [address]- Care Team Providers Care Cancer Registrar Name Role Phone Not on Staff, PCP Primary Care Physician Unavail able [place] [facility] [place] 02[place]/22 [facility] [address] [place] [address]- Discharge Disposition: A-D/C Home Attending Physician: Alexander White DO Admitting Physician: Alexander White DO Referring Physician: Not on Staff, Referring MD [...] recent to oldest [Reference Range]: 1 Height 173 cm (02/01/22 10:24 PM) Weight 95.5 kg (02/01/22 10:24 PM) Oxygen Saturation [94-100 %] 97 % (02/01/22 10:24 PM) Pulse Rate [55-90 bpm] 104 bpm *H* (02/01/22 10:24 PM) Blood Pressure [90-138/55-84 mm Hg] 133/ 81mm Hg (02/01/22 10:24 PM) Respiratory Rate [16-30 br/min] 16 br/mi n (02/01/22 10:24 PM) Temperature [96.8-100.4 DegF] 98.3 DegF (02/01/22 10:24 PM) Mode of Delivery (Oxygen) Room air (02/01/22 10:24 PM) Blood pressure sites Arm, left (02/01/22 10:24 PM) Temperature Route Oral (02/01/22 10:24 PM) Dry Weight 95.5 kg (02/01/22 10:24 PM) Patient Care team information Care Team Personnel Name: Not on Staff, PCP Position: [facility] Physician (General Medicine) Member Role: PCP Name: Derrek Ontiveros RN Position: [facility] ED RN W/OE and Tasks Member Role: Patient Care Provider Care Team Related Persons Name: NO, ONE Name: OLIVER LIMA Address: home [address] [place] [id number]
--- OUTSIDE RECORDS SUMMARY | 2023-01-07 01:09 | XMS_ITS | Continuity of Care Document ---
Author Name Unknown Organization [facility] Address [address] [place] [address]- Care Team Providers Care Textile Dyer Name Role Phone Not on Staff, PCP Primary Care Physician Unavail able Encounter [facility] Date(s): 09/03/20 - 09/04/20 [facility] [address] [place] [address]- Discharge Disposition: A-D/C Home Attending Physician: Marin Young DO Admitting Physician: Marin Young DO Referring Physician: Not on Staff, Referring [...] recent to oldest [Reference Range]: 1 Height 175 cm (09/04/20 12:00 AM) Weight 97 kg (09/04/20 12:00 AM) Oxygen Saturation [94-100 %] 97 % (09/04/20 12:02 AM) Pulse Rate [55-90 bpm] 109 bpm *H* (09/04/20 12:02 AM) Blood Pressure [90-138/55-84 mm Hg] 124/ 86mm Hg (09/04/20 12:02 AM) Respiratory Rate [16-30 br/min] 20 br/mi n (09/04/20 12:02 AM) Temperature [96.8-100.4 DegF] 98.2 DegF (09/04/20 12:02 AM) Mode of Delivery (Oxygen) Room air (09/04/20 12:02 AM) Temperature Route Oral (7/23/21 12:02 AM) Dry Weight 97 kg (09/04/20 12:00 AM) Weight Obtained Via Patient/family state d (09/04/20 12:00 AM)
[2023-01-07 01:16] LABS: MANUAL DIFF FLAG NO
[2023-01-07 01:17] LABS: Basophils Absolute Auto 0.1 X10*3/uL (0.0-0.2); Basophils Percent Auto 0.4 % (0-2); Eosinophils Percent Auto 0.2 % (0-4); Hematocrit 45.8 % (42.0-52.0); Hemoglobin 15.3 g/dl (14.0-18.0); Imm Gran Pct Auto 0.7 % (0.0-0.4); Lymphocytes Absolute Auto 0.8 X10*3/uL (1.2-4.9); Lymphocytes Percent Auto 5.7 % (20-40); Mean Corpuscular HGB Conc 33.4 g/dl (31.0-36.0); Mean Corpuscular Hemoglobin 30.5 pg (27.0-33.0); Mean Corpuscular Volume 91.4 fL (80.0-98.0); Mean Platelet Volume 10.6 fL (9.4-12.4); Monocytes Absolute Auto 1.1 X10*3/uL (0.1-1.2); Monocytes Percent Auto 7.5 % (2-11); Neutrophils Absolute Auto 12.4 x10*3/uL (2.0-8.3); Neutrophils Percent Auto 85.5 % (45-73); Platelet Count 227 X10*3/uL (160-400); Red Blood Count 5.01 X10*6/uL (4.60-5.80); Red Cell Distribution Width 12.4 % (11.0-16.0); White Blood Count 14.5 X10*3/uL (4.8-10.8)
[2023-01-07] MEDS: Lactated Ringers 1,000 ML 100 ML IVCONT ×2 (01:21→11:01)
[2023-01-07] MEDS: Morphine Sulfate 4 MG/ML CARTRIDGE IVPUSH (01:22)
[2023-01-07] MEDS: ondansetron HCL 4 MG/2 ML VIAL IVPUSH (01:23)
[2023-01-07 01:28] LABS: INTERNATIONAL NORM RATIO 0.9 (0.9-1.1); Prothrombin Time 10.9 SEC (11.1-13.3)
[2023-01-07 01:34] LABS: Alanine Aminotransferase 119 U/L (0-40); Albumin Level 4.3 g/dL (3.5-5.0); Alkaline Phosphatase 60 U/L (39-117); Anion Gap 16 (12-20); Aspartate Amino Transferase 78 U/L (5-37); Bilirubin Total 0.4 mg/dL (0.0-1.0); Blood Urea Nitrogen 8 mg/dL (9-16); Calcium 8.4 mg/dL (8.4-10.2); Carbon Dioxide 22 mmol/L (22-29); Chloride 110 mmol/L (96-108); Creatinine Clr Calc Pharmacy 129.3; Estimated Glomerular Filt Rate > 60; Ethanol 283 mg/dL; Glucose Random 127 mg/dL (60-115); Potassium 4.3 mmol/L (3.3-5.1); Sodium 144 mmol/L (135-145); Total Protein 7.8 g/dL (6.5-8.0)
--- NOTE | 2023-01-07 02:07 | PC.NURSE ---
Splint applied to right leg by . Pt tolerated well.
[2023-01-07] MEDS: HYDROmorphone HCl 0.5 MG/0.5 ML SYRINGE 0.25 MG IVPUSH ×4 (02:30→20:19)
--- NOTE | 2023-01-07 04:13 | PC.NURSE ---
this rn assumed care of pt. pt resting in stretcher comfortably, respirations even and unlabored.
[2023-01-07] MEDS: oxyCODONE HCl Immed Release 5 MG TABLET PO ×4 (04:53→22:17)
--- NOTE | 2023-01-07 06:02 | PC.NURSE ---
pt allowed to sleep, respirations even and unlabored.
[2023-01-07 06:19] LABS: Basophils Absolute Auto 0.1 X10*3/uL (0.0-0.2); Basophils Percent Auto 0.4 % (0-2); Eosinophils Percent Auto 0.2 % (0-4); Hematocrit 40.4 % (42.0-52.0); Hemoglobin 13.6 g/dl (14.0-18.0); Imm Gran Abs Auto 0.08 X10*3/uL (0.00-0.03); Imm Gran Pct Auto 0.7 % (0.0-0.4); Lymphocytes Absolute Auto 1.5 X10*3/uL (1.2-4.9); MANUAL DIFF FLAG SCAN; Mean Corpuscular HGB Conc 33.7 g/dl (31.0-36.0); Mean Corpuscular Hemoglobin 31.2 pg (27.0-33.0); Mean Corpuscular Volume 92.7 fL (80.0-98.0); Mean Platelet Volume 10.6 fL (9.4-12.4); Monocytes Absolute Auto 1.7 X10*3/uL (0.1-1.2); Monocytes Percent Auto 15.3 % (2-11); Neutrophils Absolute Auto 7.9 x10*3/uL (2.0-8.3); Neutrophils Percent Auto 70.4 % (45-73); Platelet Count 241 X10*3/uL (160-400); Red Blood Count 4.36 X10*6/uL (4.60-5.80); Red Cell Distribution Width 12.5 % (11.0-16.0); SCAN SMEAR FLAG 1; White Blood Count 11.3 X10*3/uL (4.8-10.8)
[2023-01-07 06:35] LABS: Anion Gap 15 (12-20); Blood Urea Nitrogen 8 mg/dL (9-16); Calcium 8.4 mg/dL (8.4-10.2); Carbon Dioxide 22 mmol/L (22-29); Chloride 110 mmol/L (96-108); Creatinine Clr Calc Pharmacy 148.5; Estimated Glomerular Filt Rate > 60; Glucose Fasting 114 mg/dL (60-99); Potassium 3.9 mmol/L (3.3-5.1); Sodium 143 mmol/L (135-145)
[2023-01-07 06:42] LABS: SLIDE REVIEW VERIFIED
[2023-01-07] MEDS: Acetaminophen 325 MG TABLET 650 MG PO ×2 (07:10→21:55)
[2023-01-07] MEDS: 0.9 % Sodium Chloride Flush 3 ML SYRINGE IVFLUSH ×2 (07:10→20:20)
--- NOTE | 2023-01-07 07:15 | PC.NURSE ---
patient resting in bed, respirations equal and unlabored. patient stating he has pain in the right leg, medicated per mar with prn Tylenol as requested by patient. VSS, patient shows no signs of distress, skin dry and intact
--- NOTE | 2023-01-07 07:39 | PHA.MEDREC ---
Pharmacy Consult ? Medication Reconciliation Pharmacy has completed the medication reconciliation. patient reports picking up a prescription for naltrexone 50mg this week but has not started it.
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
[2023-01-07] MEDS: Docusate Sodium 100 MG CAPSULE PO ×2 (09:02→20:19)
[2023-01-07] MEDS: oxyCODONE HCl ER 10 MG TAB.ER.12H PO ×2 (09:02→20:19)
--- NOTE | 2023-01-07 10:17 | MHC.CM.PN ---
PT REPORTS HE RECENTLY MOVED HERE FROM [place] AND NOW LIVES WITH HIS BEST FRIEND, GINNY HE REPORTS HE IS INDEPENDENT WITH CARE, HAS NO DME AND NO SERVICES HE REPORTS HE HAS NOT SEEN A PCP IN A LONG TIME, THE LAST ONE WAS IN [place] TASK SENT TO CM OFFICE TO SEE IF PT CAN BE SET UP WITH A LOCAL PCP PT ASKS THAT HIS CURRENT CONTACT BE REMOVED AND REPLACED WITH GINNY WELSH [phone] HE CONFIRMS IT IS OK TO SPEAK WITH GINNY IF SHE CALLS FOR UPDATES PT DECLINES TO COMPLETE A HCP AT THIS TIME PT REPORTS HE DOES NOT WANT TO GO TO STR AT DC AND UNDERSTANDS HE WILL NOT BE ABLE TO HAVE VNA SERVICES HE REPORTS HE WOULD PREFER TO GO TO OUTPATIENT PT IF POSSIBLE DCP TBD PENDING PT FERNANDO PT WILL HAVE A RIDE
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
[2023-01-07] MEDS: PHENobarbitaL sodium 130 MG/ML IM ONCE 220 MG IM (13:05)
--- NOTE | 2023-01-07 17:15 | PC.NURSE ---
Pt reports he started naltrexone 50mg tab po daily (confirmed with [facility] pharmacy) on 01/05, but did not take a dose 01/06. Also, pt is eating and drinking well, may stop IV f and restart at midnight per Dr. Best. Will update oncoming RN.
--- NOTE | 2023-01-07 17:41 | PC.NURSE ---
Pt reports he is prescribed naltrexone 50mg tab po daily (confirmed with [facility] pharmacy). States his last dose was on 01/05, but did not take a dose 01/06. Also, pt is eating and drinking well, may stop IV f and restart at midnight per Dr. Best. Will update oncoming RN.
[2023-01-08] VITALS (16 sets, daily range): BP systolic 117–158; BP diastolic 74–104; PULSE 70–118; RESP 11–18; TEMP 36.2–36.9; O2SAT 94–100
[2023-01-08] MEDS: HYDROmorphone HCl 0.5 MG/0.5 ML SYRINGE 0.25 MG IVPUSH ×3 (00:15→08:05)
[2023-01-08] MEDS: oxyCODONE HCl Immed Release 5 MG TABLET PO ×2 (02:17→06:15)
[2023-01-08] MEDS: Lactated Ringers 1,000 ML 100 ML IVCONT ×2 (02:19→16:36)
--- NOTE | 2023-01-08 08:58 | HO.ANESPROP2 ---
HPI - Anesthesia Eval Consult details Narrative: Right femur fracture PMFSH Active Problems Active Problems: All Active Problems (Updated 01/07/23 @ 07:46 by Efraín Lopez PA-C) Fracture of femur (Acute) Alcohol use disorder, severe, dependence (Acute) Past Medical History Medical History Alcohol abuse Family History Family history of problems with anesthesia: No Surgical History History of Problems with Anesthesia: No Social History Household Members: Friend(s) Housing: Apartment Patient Tobacco Use Status: Current everyday Tobacco user Tobacco use type: Cigarette Cigarettes Per Day: 5 Second Hand Smoke Exposure: No Substance Use Type: Marijuana service: No Meds Allergies Allergy/AdvReac Type Severity Reaction Status Date / Time No Known Allergies Allergy Verified 02/17/22 17:11 Active Medications: Current Medications Acetaminophen (Acetaminophen 325 Mg Tablet) 650 mg PO Q6H PRN PRN Reason: Pain, Mild (Pain Scale 1-3) Last Admin: 01/07/23 21:55 Dose: 650 mg Docusate Sodium (Docusate Sodium 100 Mg Capsule) 100 mg PO BID [facility] Last Admin: 01/08/23 07:57 Dose: Not Given Hydromorphone HCl (Hydromorphone Hcl 0.5 Mg/0.5 Ml Syringe) 0.25 mg IVPUSH Q4H PRN; Protocol PRN Reason: Pain, Severe (Pain Scale 7-10) Last Admin: 01/08/23 08:05 Dose: 0.25 mg Lactated Ringer's (Lr) 1,000 mls @ 100 mls/hr IVCONT .Q10H [facility] Last Admin: 01/08/23 02:19 Dose: 100 mls/hr Cefazolin Sodium/Dextrose (Ancef) 2 gm in 50 mls @ 100 mls/hr IV PREOP ONE Stop: 01/08/23 09:29 Ondansetron HCl (Ondansetron Hcl 4 Mg/2 Ml Vial) 4 mg IVPUSH Q8H PRN PRN Reason: Nausea and Vomiting Oxycodone HCl (Oxycodone Hcl Immed Release 5 Mg Tablet) 5 mg PO Q4H PRN PRN Reason: Pain, Moderate(Pain Scale 4-6) Last Admin: 01/08/23 06:15 Dose: 5 mg Oxycodone HCl (Oxycodone Hcl Er 10 Mg Tab.Er.12h) 10 mg PO BID [facility] Last Admin: 01/07/23 20:19 Dose: 10 mg Pharmacy Consult (Consult Rx Etoh Phenob Im/Po) 1 each MISCELLANE ONCE PRN; Protocol PRN Reason: Consult order Phenobarbital (Phenobarbital 15 Mg Tablet) 45 mg PO BID [facility]; Protocol Stop: 01/09/23 21:01 Last Admin: 01/08/23 07:58 Dose: Not Given Phenobarbital (Phenobarbital 30 Mg Tablet) 30 mg PO BID [facility]; Protocol Stop: 01/11/23 21:01 Phenobarbital (Phenobarbital 30 Mg Tablet) 30 mg PO DAILY [facility]; Protocol Stop: 01/13/23 09:01 Sodium Chloride (0.9 % Sodium Chloride Flush 3 Ml Syringe) 3 ml IVFLUSH QSHIFT [facility] Last Admin: 01/08/23 07:57 Dose: Not Given Home Medications Medication Instructions Recorded Confirmed Last Taken Type naltrexone 50 mg tablet 50 mg PO DAILY 01/07/23 01/07/23 01/05/23 History Exam Height,Weight and Vital Signs: Height 5 ft 8 in Weight 89.4 kg Last Vital Signs Temp 98.4 F 01/08/23 07:49 Pulse 85 01/08/23 07:49 Resp 18 01/08/23 07:49 BP 158/104 H 01/08/23 07:49 Pulse Ox 97 01/08/23 07:49 O2 Del Method Room Air 01/08/23 07:49 Pertinent Lab Results Pertinent Lab Results: Laboratory Tests 01/07/23 01/07/23 01:09 05:49 WBC 14.5 H 11.3 H RBC 5.01 4.36 L Hgb 15.3 13.6 L Hct 45.8 40.4 L MCV 91.4 92.7 MCH 30.5 31.2 MCHC 33.4 33.7 RDW 12.4 12.5 Plt Count 227 241 MPV 10.6 10.6 Immature Gran % (Auto) 0.7 H 0.7 H Neut % (Auto) 85.5 H 70.4 Lymph % (Auto) 5.7 L 13.0 L [place] % (Auto) 7.5 15.3 H Eos % (Auto) 0.2 0.2 Baso % (Auto) 0.4 0.4 Lymph # (Auto) 0.8 L 1.5 [place] # (Auto) 1.1 1.7 H Eos # (Auto) 0.0 0.0 Baso # (Auto) 0.1 0.1 Abs Immat Gran (auto) 0.10 H 0.08 H Absolute Neuts (auto) 12.4 H 7.9 Absolute Nucleated RBC 0.000 0.000 Nucleated RBC % (auto) 0.0 0.0 Smear Tech's Comments VERIFIED PT 10.9 L INR 0.9 Sodium 144 143 Potassium 4.3 3.9 Chloride 110 H 110 H Carbon Dioxide 22 22 Anion Gap 16 15 BUN 8 L 8 L Creatinine 0.93 0.81 Estim Creat Clear Calc 129.3 148.5 Estimated GFR > 60 > 60 Random Glucose 127 H Fasting Glucose 114 H Calcium 8.4 8.4 Total Bilirubin 0.4 AST 78 H ALT 119 H Alkaline Phosphatase 60 Total Protein 7.8 Albumin 4.3 Ethyl Alcohol 283 Blood Type A Positive Antibody Screen NEGATIVE Airway Mallampati Class: II TM Dist: >3cm Neck ROM: Full Adult Head Mouth w/Numbe Teeth: 1. Loose/Missing/Broken Teeth: Yes (upper right inciser) Heart: RRR Lungs: CTA Assessment and Plan Assessment Anesthesia Assessment: Anesthesia Plan Discussed, Smoking Cess. Discussed and Chart Reviewed Final Anesthetic Review Family History of Problems with Anesthesia: No History of Problems with Anesthesia: No NPO: Yes ASA Class: II Final Preanesthetic Review: No Changes in Pt Med Stat, Meds/Allgs Chart Reviewed, Consent Obtained/Reviewed and Anes Risks/Benef Reviewed Patient Risk: Intermediate Procedure Risk: Intermediate Anesthetic Plan Anesthetic Plan: GA Disposition: Standard PACU
--- NOTE | 2023-01-08 11:51 | P.BOP_ITS ---
Brief Operative Note Date of Service: 01/08/23 Pre-op diagnosis: right femur fracture Post-op diagnosis: same Procedure: ORIF right femur fracture Implants: [place] Surgeon: Miguel Castrejon MD Anesthesia: MAC and spinal Was an Black Top Raker used for this Procedure?: No Estimated blood loss (mL): 350 IV fluids (mL): 1,200 Pathology: none sent Condition: stable Disposition: PACU
[2023-01-08] MEDS: fentaNYL citrate/PF 100 MCG/2 ML VIAL 50 MCG IVPUSH ×2 (12:02→12:08)
[2023-01-08] MEDS: Acetaminophen 325 MG TABLET 650 MG PO (12:48)
[2023-01-08] MEDS: oxyCODONE HCl Immed Release 5 MG TABLET 10 MG PO ×2 (12:48→16:44)
[2023-01-08] MEDS: HYDROmorphone HCl 0.5 MG/0.5 ML SYRINGE IVPUSH (14:35)
[2023-01-08] MEDS: ceFAZolin Sodium/Dextrose,Iso 2 GM/50 ML PIGGYBACK IV (18:22)
[2023-01-08] MEDS: Zolpidem Tartrate 5 MG TABLET PO (20:51)
[2023-01-08] MEDS: Docusate Sodium 100 MG CAPSULE PO (20:51)
[2023-01-08] MEDS: oxyCODONE HCl ER 10 MG TAB.ER.12H PO (20:51)
[2023-01-08] MEDS: PHENobarbitaL 15 MG TABLET 45 MG PO (20:54)
--- NOTE | 2023-01-08 23:00 | PC.NURSE ---
found an empty nip of alcohol in pt's bed, security called, they found another empty nip of alcohol in pt's belongings and 2 full nips found in pt's gilbert cup. telesitter put in room, nursing freight loading supervisor aware.
[2023-01-09] VITALS (7 sets, daily range): BP systolic 103–143; BP diastolic 56–94; PULSE 89–114; RESP 16–18; TEMP 36.4–37.4; O2SAT 95–98
--- NOTE | 2023-01-09 00:55 | PC.NURSE ---
following up after previous RN/security found full and empty nip bottles in room. Patient seen approx 2330 for shift assessment. Easily arousable, awake for assessment, clear speech, answers appropriately. CIWA zero. Dressing to femur repair dry and intact, with good CMS.
[2023-01-09] MEDS: ceFAZolin Sodium/Dextrose,Iso 2 GM/50 ML PIGGYBACK IV ×3 (02:28→17:30)
[2023-01-09] MEDS: HYDROmorphone HCl 0.5 MG/0.5 ML SYRINGE 0.25 MG IVPUSH ×2 (02:52→08:42)
[2023-01-09] MEDS: oxyCODONE HCl Immed Release 5 MG TABLET 10 MG PO ×4 (04:21→20:18)
--- NOTE | 2023-01-09 07:37 | PM.PNORT ---
Subjective Subjective Date of Service: 01/09/23 Interval history: POD1 s/p right femur ORIF Patient is resting in bed comfortably No overnight events Pain is managed No additional complaints Physical Exam Vital Signs: Vital Signs: Last Vital Signs Temp 98 F 01/09/23 06:53 Pulse 110 H 01/09/23 06:53 Resp 16 01/09/23 06:53 BP 129/77 01/09/23 06:53 Pulse Ox 95 01/09/23 06:53 O2 Del Method Room Air 01/09/23 06:53 O2 Flow Rate 1 01/08/23 14:00 BMI result Body Mass Index 30.0 Const: General: cooperative, healthy appearing, comfortable, no acute distress, well developed and alert Orientation/consciousness: patient oriented x3 HEENT: Head: Yes normal to inspection, Yes normocephalic and Yes atraumatic Eyes: General: appearance normal, both eyes and all related structures Neck: Neck: Yes normal visual inspection and Yes no lymphadenopathy Resp: Effort & Inspection: normal respiratory effort and able to speak in complete sentences Cardio: Rate: regular rate Peripheral pulses: Peripheral pulses 2+ throughout GI: Inspection: Yes normal to inspection Palpation (GI): Soft to palpation Skin: General skin exam: no rashes or lesions noted Neuro: General: patient oriented x3 Extrem: Other: right femur dressing is c/d/i. Able to dorsi/plantar flex. Calf is supple and nontender. Sensation intact. Pedal pulse intact. Psych: Appearance: grossly normal Mental Status: mental status grossly normal Procedures Date of Service Date of Service: 01/09/23 Progress Note: A&P Assessment and plan (1) Fracture of femur: Status: Acute Assessment and Plan: POD1 s/p right femur ORIF Continue pain mgmnt Begin dvt ppx - ASA begin PT for right femur ORIF - NWB RLE Dispo planning-Pending PT eval, pain mgmnt (2) Alcohol use disorder, severe, dependence: Status: Acute Time Spent With Patient Time: Total time managing care of this patient today ____ minutes. Quality Stroke Does the patient have a stroke diagnosis?: No VTE Prior VTE?: No VTE Risk Level:: Surgical - very high VTE Device Contraindication: N/A - Device Ordered VTE Drug Contraindication: Treatment Not Indicated
[2023-01-09] MEDS: oxyCODONE HCl ER 10 MG TAB.ER.12H PO ×2 (08:31→20:18)
[2023-01-09] MEDS: PHENobarbitaL 15 MG TABLET 45 MG PO ×2 (08:32→20:17)
[2023-01-09] MEDS: Docusate Sodium 100 MG CAPSULE PO ×2 (08:32→20:18)
[2023-01-09] MEDS: 0.9 % Sodium Chloride Flush 3 ML SYRINGE IVFLUSH ×3 (08:52→23:38)
[2023-01-09 09:02] LABS: Hematocrit 32.6 % (42.0-52.0); Hemoglobin 11.3 g/dl (14.0-18.0)
[2023-01-09] MEDS: Aspirin 325 MG TABLET PO ×2 (10:17→20:20)
[2023-01-09] MEDS: Morphine Sulfate 2 MG/ML CARTRIDGE 0.5 MG IVPUSH ×4 (11:30→23:37)
--- NOTE | 2023-01-09 13:06 | MHC.CM.PN ---
EMR REVIEWED. PT EVAL TODAY, RECOMENDATION IS STR. SPOKE WITH PATIENT WHO IS REFUSING STR AT THIS TIME. STATES HE IS ON PROBATION, HAS FREQUENT CHECK INS AND RANDOM URINE TESTS. 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 PREFERS HOME WITH [facility], DOES NOT HAVE A PCP. DISCUSSED WITH ORTHO MARKELL BHATTI, WHO AGREES TO SIGN [facility] ORDERS. REFERRAL PLACED IN [facility] TO [facility]. AWAITING RESPONSE. CM WILL CONTINUE TO FOLLOW.
[2023-01-09] MEDS: Nicotine 21 MG PATCH.TD24 TRANSDERMA (14:33)
--- NOTE | 2023-01-09 15:21 | HO.POSTANES ---
Post Anesthesia Evaluation Post Anesthesia Evaluation Date of Service: 01/09/23 Vital Signs: Vital Signs Temp Pulse Resp BP Pulse Ox O2 Del Method 01/09/23 11:18 97.6 F 100 17 140/94 H 97 Room Air 01/09/23 09:00 98 F 17 103/56 L 98 Room Air 01/09/23 09:00 Room Air 01/09/23 08:26 103/56 L 98 01/09/23 06:53 98 F 110 H 16 129/77 95 Room Air Anesthesia: Spinal Mental Status: Awake Pain Control: Satisfactory Nausea/Vomiting: None Hydration: Adequate Anesthesia-Related Issues: No Anes. Related Issues
[2023-01-09] MEDS: Acetaminophen 325 MG TABLET 650 MG PO (16:19)
[2023-01-09] MEDS: Zolpidem Tartrate 5 MG TABLET PO (20:18)
[2023-01-10] MEDS: ceFAZolin Sodium/Dextrose,Iso 2 GM/50 ML PIGGYBACK IV ×2 (01:38→08:47)
[2023-01-10] MEDS: oxyCODONE HCl Immed Release 5 MG TABLET 10 MG PO ×3 (02:13→13:13)
[2023-01-10 03:34] VITALS: BP 134/82; PULSE 107; RESP 16; TEMP 37.2; O2SAT 96
[2023-01-10] MEDS: Morphine Sulfate 2 MG/ML CARTRIDGE 0.5 MG IVPUSH ×3 (04:30→13:12)
[2023-01-10 07:23] VITALS: BP 131/81; PULSE 94; RESP 17; TEMP 37.2; O2SAT 95
--- NOTE | 2023-01-10 08:43 | P.DS_ITS ---
DS: Providers Provider Date of Service: 01/10/23 Date of admission: 01/07/23 01:08 Primary care physician: Unknown Physician Consults: 01/07/23 01:02 Consult to Hospitalist Routine Comment: Consulting Provider: Hospitalist Reason For Exam: Etoh abuse, pre op clearance DS: Diagnosis Discharge Diagnosis (1) Fracture of femur: Status: Acute (2) Alcohol use disorder, severe, dependence: Status: Acute DS: Summary Hospital Course Hospital Course: The patient underwent a successful ORIF right femur on 01/08/23, was transferred to PACU and then to the floor to recover. During their stay, their vitals were stable, afebrile at 98.9 . Labs were unremarkable, H/H 11.3/32.6. POD 1 he was started on ASA 325mg tabs po bid for DVT ppx, they also received Physical Therapy services. Physical therapy should include gait training, ROM to tolerance and quad strength. He is NON WEIGHT BEARING ON THE RIGHT LOWER EXTREMITY. I had a lengthy discussion with the patient about his alcohol dependance and the use of opiate medications. I explained he should not be drinking any type of alcohol while taking these medications as the risk include but are not limited to respiratory depression, overdose, seizures, nausea and vomiting. He states he does understand the risk and states he will not be consuming alcohol. Prior to discharge, his dressing was clean dry and intact. The dressing should remain intact and dry at all times. Any concerns with the dressing, please contact orthopedic office. No showering. The plan is to be discharged home without services. Time Attestation Discharge coordination time: Less than 30 minutes Quality: Safe Use of Opioids Does Pt have an Active Cancer Diagnosis on the Problem List?: No Quality: Stroke Does the patient have a stroke diagnosis?: No Physical Exam Vital Signs: Vital Signs: Last Vital Signs Temp 98.9 F 01/10/23 07:23 Pulse 94 01/10/23 07:23 Resp 17 01/10/23 07:23 BP 131/81 01/10/23 07:23 Pulse Ox 95 01/10/23 07:23 O2 Del Method Room Air 01/10/23 07:23 O2 Flow Rate 1 01/08/23 14:00 BMI result Body Mass Index 30.0 Const: General: cooperative, healthy appearing, comfortable, no acute distress, well developed and alert Orientation/consciousness: patient oriented x3 HEENT: Head: Yes normal to inspection, Yes normocephalic and Yes atraumatic Eyes: General: appearance normal, both eyes and all related structures Neck: Neck: Yes normal visual inspection and Yes no lymphadenopathy Resp: Effort & Inspection: normal respiratory effort and able to speak in complete sentences Cardio: Rate: regular rate Peripheral pulses: Peripheral pulses 2+ throughout GI: Inspection: Yes normal to inspection Palpation (GI): Soft to palpation Skin: General skin exam: no rashes or lesions noted Neuro: General: patient oriented x3 Extrem: Other: right femur dressing is c/d/i. Able to dorsi/plantar flex. Calf is supple and nontender. Sensation intact. Pedal pulse intact. Psych: Appearance: grossly normal Mental Status: mental status grossly normal DS: Data Data Completed and Pending Labs on day of discharge: Laboratory Results - last 24 hr 01/09/23 08:46 Hgb 11.3 L Hct 32.6 L Discharge Plan Discharge Anticipated Discharge Date/Time: 01/10/23 08:48 Patient Disposition: Home, Self-Care Discharge Diagnosis: s/p ORIF right femur Referrals: Efraín Lopez PA-C [Physician Steam Table Worker] - 2 Weeks (01/26/23 1:00 [facility] Surgeons Efraín Lopez PA-C) Discharge Medications: New acetaminophen 325 mg Tablet 650 mg PO Q6H PRN (Reason: Pain, Mild (Pain Scale 1-3)) 30 Days Qty: 240 0RF aspirin 325 mg Tablet 325 mg PO Q12H 42 Days Qty: 84 0RF docusate sodium 100 mg Capsule 100 mg PO BID 14 Days Qty: 28 0RF oxycodone 10 mg tablet 10 mg PO Q4H PRN (Reason: Pain, Moderate(Pain Scale 4-6)) 7 Days Qty: 42 0RF Rx Instructions: Partial Fill upon patient request. Continued naltrexone 50 mg Tablet 50 mg PO DAILY Diet: Regular diet Activity on Discharge: Walk with crutches Stand Alone Forms: Patient Portal Discharge page Care Plan Goals: Restore function of joint Health Concerns: Avoid alcohol while taking narcotic medication Plan of Treatment: Physical Therapy Pain management DVT prophylaxis Assessment: * Non weight bearing right leg * Knee ROM as tolerated * Continue anticoagulant x 6 weeks * No tub bath or shower-Keep dressing clean, dry and intact * Follow up with orthopedics in 2 weeks
[2023-01-10] MEDS: Nicotine 21 MG PATCH.TD24 TRANSDERMA (08:47)
[2023-01-10] MEDS: PHENobarbitaL 30 MG TABLET PO (08:47)
[2023-01-10] MEDS: oxyCODONE HCl ER 10 MG TAB.ER.12H PO (08:47)
[2023-01-10] MEDS: Docusate Sodium 100 MG CAPSULE PO (08:47)
[2023-01-10] MEDS: 0.9 % Sodium Chloride Flush 3 ML SYRINGE IVFLUSH (08:48)
[2023-01-10 09:49] VITALS: BP 131/81; PULSE 94; O2SAT 95
--- NOTE | 2023-01-10 09:50 | MHC.CM.PN ---
EMR REVIEWED. PATIENT IS MEDICALLY CLEARED FOR DC. SEEN BY PHYSICAL THERAPY TODAY AND ABLE TO DO STAIRS WITH CRUTCHES. [facility] UNABLE TO ACCEPT PATIENT WITHOUT ESTABLISHED PCP. ORTHO PA AWARE. DCP: RETURN HOME WITH FRIEND WHO WILL ASSIST WITH CARE VIA BLS, FOLLOW UP WITH ORTHO IN 2 WEEKS, ? START OUTPT PHYSICAL THERAPY AT THAT TIME. BLS BOOKED WITH [facility] FOR 4PM, FRIEND WORKS UNTIL 3PM. RN, PA AND PATIENT ARE AWARE.
[2023-01-10] MEDS: Aspirin 325 MG TABLET PO (11:04)
[2023-01-10 15:05] VITALS: BP 132/94; PULSE 97; RESP 16; TEMP 36.3; O2SAT 96
--- NOTE | 2023-01-13 16:05 | P.OP_ITS ---
Operative Note Operative Note Date of Service: 01/08/23 Narrative: Date of Service: 01/08/23 Pre-op diagnosis: right femur fracture Post-op diagnosis: same Procedure: ORIF right femur fracture Implants: [place] Surgeon: Miguel Castrejon MD Anesthesia: MAC and spinal Was an 911 Dispatcher used for this Procedure?: No Estimated blood loss (mL): 350 IV fluids (mL): 1,200 Pathology: none sent Condition: stable Disposition: PACU Patient was brought to the operating room and placed in the lateral position on the surgical table. He was prepped and draped in standard sterile fashion and a time out was called to identify proper site, proper procedure and IV antibiotics per weight were administered. I began by making a lateral incision from the lateral joint line to the femoral proximal shaft.The ITB was incised in line with the incision and I used the Werewolf for hemostasis. The vastus was reflected anteriorly and the bleeders were cauterized. This was a oblique fracture of the metadiaphysis. I used a lobster claw and verbrugge to reduce the framents. $ interfragmentary screws were placed. I was able to remove the bone clamps and the fracture was stable. I selected a locking plate and this was applied to the bone. I confirmed plate location on the lateral, the distal locking screws were placed using standard AO technique. Biplanar fluoro was used to confirm location and fracture reduction. My proximal locking screws were placed using percutaneous technique. The position of the plate and the fracture reduction were confirmed with biplanar fluoroscopy. Once satisfied with this I removed all non essential instrumentation and irrigated copiously. I closed with absorbable sutures and skin edelmira. Patient was then placed in sterile dressing and extubated. He was brought to the recovery room in stable condition. There were no known complications.
== END 2023-01-10 16:23 | disposition home or self-care (01) | DRG 308 ==
LOC: HO.ED 01:13 → HO.EDOVER 01:14 → HO.S3 07:28
PROVIDERS: Orthopaedic Surgery; Physician Assistant; Admitting Provider Physician Assistant; Emergency Provider Internal Medicine; Visit Provider Physician Assistant
PROC: 0QS804Z Reposition Right Femoral Shaft with Internal Fixation Device, Open Approach (ICD-10-PCS; principal; 2023-01-08 09:00)
DX: S72.351A Displaced comminuted fracture of shaft of right femur, initial encounter for closed fracture (principal); F10.229 Alcohol dependence with intoxication, unspecified; F17.210 Nicotine dependence, cigarettes, uncomplicated; X58.XXXA Exposure to other specified factors, initial encounter; Z71.6 Tobacco abuse counseling; Y90.8 Blood alcohol level of 240 mg/100 ml or more; Z79.899 Other long term (current) drug therapy
CPT/HCPCS: 36415; 73552; 73560; 80048; 80053; 80307; 85014; 85018; 85025; 85610; 86850; 86900; 86901; 97116; 97162; 97530; 99285; C1713; J0690; J1100; J1170; J2250; J2270; J2405; J2560; J2704; J2795; J3010; J7120

== ENCOUNTER → 2023-01-07 01:08 | Outpatient (BNV) | payer MEDICAID, SELFPAY | PROVIDERS: Admitting Provider Physician Assistant; Emergency Provider Internal Medicine; Visit Provider Internal Medicine | DX: S72.351A Displaced comminuted fracture of shaft of right femur, initial encounter for closed fracture (principal); F10.20 Alcohol dependence, uncomplicated | CPT/HCPCS: 99222 ==

== ENCOUNTER → 2023-01-07 01:08 | Outpatient (BNV) | payer MEDICAID, SELFPAY | PROVIDERS: Admitting Provider Physician Assistant; Emergency Provider Internal Medicine; Visit Provider Physician Assistant | DX: S72.441A Displaced fracture of lower epiphysis (separation) of right femur, initial encounter for closed fracture (principal); F10.20 Alcohol dependence, uncomplicated | CPT/HCPCS: 27507; 99024; 99223 ==

== ENCOUNTER 2023-01-20 09:51 | Outpatient (REF) | payer MEDICAID, SELFPAY | END 2023-01-20 09:52 | disposition home or self-care (01) | LOC: HO.HOSX 09:51 | PROVIDERS: Visit Provider Physician Assistant | DX: Z13.89 Encounter for screening for other disorder (principal) ==

== ENCOUNTER 2023-01-24 12:35 | Outpatient (REF) | payer MEDICAID, SELFPAY ==
--- NOTE | ~2023-01-24 | XR_ITS ---
EXAMINATION: XR FEMUR, RIGHT CLINICAL INFORMATION: Postsurgical fixation of right femoral fracture. COMPARISON: Radiograph right femur 01/07/2023. TECHNIQUE: AP and lateral views of the right femur were obtained. FINDINGS: Long lateral fixation plate across the femur with multiple traversing screws. No evidence of hardware fracture nor significant periprosthetic lucency to suspect loosening or infection. Near-anatomic alignment of previously seen comminuted mid to distal femoral shaft fracture. No interval injuries. Surgical edelmira overlie the skin of the lateral thigh. Decreased soft tissue swelling. No unexpected radiopaque foreign bodies. XR/XR femur RT 2V IMPRESSION: 1. ORIF of the right femur without evidence of hardware failure. 2. Near-anatomic alignment of the comminuted femoral shaft fracture. 3. No interval injury.
== END 2023-01-24 12:36 | disposition home or self-care (01) ==
LOC: HO.HOSX 12:35
PROVIDERS: Visit Provider Physician Assistant
DX: S72.44 Fracture of lower epiphysis (separation) of femur (principal); F10.20 Alcohol dependence, uncomplicated
CPT/HCPCS: 73552; 99212

== ENCOUNTER 2023-01-24 12:35 | Outpatient (AMB) | payer MEDICAID, SELFPAY ==
--- NOTE | 2023-01-24 12:36 | A.OFFVIS_ITS ---
Intake Intake Visit Reasons: PO - ORIF right femur 01/08/23 NE Intake Note: Yang is a 27 year old male who presents today for a post op appointment s/p ORIF right femur 01/08/23 NE. Patient reports his dressing is saturated with possible sweat. Over all states he is doing well with mild pain and discomfort at night. Allergies No Known Allergies Allergy (Verified 01/24/23 12:56) HPI PO - ORIF right femur 01/08/23 NE HPI Details Yang is a 27 year old right hand dominant man who presents S/P right femur fracture ORIF, DOS: 01/08/[address] Castrejon. He is here for his first post-op appointment. He says he is doing well overall. He reports having some discomfort and increased, but mild, pain at night. He is concerned about his knee feeling stiff, and he has an area of numbness over his incision site. He is seen today weight-bearing while using a single crutch. [facility] Medical History Alcohol abuse Social History Household Members: Friend(s) Housing: Apartment Patient Tobacco Use Status: Current everyday Tobacco user Tobacco use type: Cigarette Cigarettes Per Day: 5 Second Hand Smoke Exposure: No Substance Use Type: Marijuana service: No Review of Systems Const All systems reviewed & are unremarkable except as noted in HPI and below Physical Exam Const General: no acute distress, alert and awake Orientation/consciousness: patient oriented x3 HEENT Head: Yes normocephalic and Yes atraumatic Eyes EOM: EOMs intact bilaterally Resp Effort & Inspection: normal respiratory effort and able to speak in complete sentences Cardio Jugular venous distension: no JVD Skin General skin exam: turgor normal Rashes: no rashes Neuro General: patient oriented x3 Extrem Other: Right Leg: Incision sites are clean, dry, and intact. Tiffanie intact. No surrounding erythema or drainage. No signs of infection. Knee ROM 0-90 degrees. NVI. Psych Appearance: grossly normal Affect: normal affect Attitude: cooperative Results Reviewed Results Reviewed: X-rays of the right femur which were obtained while in the office today and were reviewed by me, Karina Hammond PA-C, revealed intact orthopedic hardware with routine healing Assessment & Plan Assessment & Plan (1) Fracture of femur: Code(s): S72.90XA - Unspecified fracture of unspecified femur, initial encounter for closed fracture Qualifiers: Encounter type: initial encounter Femur location: distal epiphysis Fracture alignment: displaced Fracture type: closed Laterality: right Qual ified Code(s): S72.441A - Displaced fracture of lower epiphysis (separation) of right femur, initial encounter for closed fracture (2) Alcohol use disorder, severe, dependence: Code(s): F10.20 - Alcohol dependence, uncomplicated Plan Yang is a 27 year old right hand dominant man who presents S/P right femur fracture ORIF, DOS: 01/08/[address] Castrejon. He is here for his first post-op appointment. He says he is doing well overall. He reports having some discomfort and increased, but mild, pain at night. He is concerned about his knee feeling stiff, and he has an area of numbness over his incision site. He is seen today weight-bearing using a single crutch Tiffanie were removed and steri-stripes were applied. I re-educated the patient that he should be NWB for 3 months total post-operatively. I educated him that with WB he has the potential for hardware failure or re-fracture. He demonstrated understanding and states he has his second crutch in his vehicle & will return to NWB. I discussed ordering PT to work on ROM as the patient reports feeling stiffness in his right knee. An order for PT was placed today, however the patient does not have a PCP and this may complicate things with placing a referral for physical therapy and getting authorization for visits. He will follow up in [address] Castrejon. Additionally, the patient requested a refill of Oxycodone, I have weaned him to 5mg po q4hrs prn pain. X-rays obtained in the office today reveal intact orthopedic hardware with routine healing. Orders: Orders XR femur RT 2V Today S72.90XA - Unspecified fracture of unspecified femur, initial encounter for closed fracture Medications: Changed From oxycodone Partial Fill upon patient request. 10 mg PO Q4H 7 days PRN 42 tabs 0RF Pain, Moderate(Pain Scale 4-6) To oxycodone Partial Fill upon patient request. 10 mg (2 x 5 mg) PO Q4H PRN 42 tabs 0RF Pain, Moderate(Pain Scale 4-6) 7 days Patient Instructions: Scribed for Karina Manish PA-C by Nitin Lyon medical physiologist, on 01/24/23 at 1:10 PM EST. Coding Level of Care Code Global (47134) Diagnoses Closed displaced fracture of distal epiphysis of right femur, initial encounter S72.441A Encounter type: initial encounter Femur location: distal epiphysis Fracture alignment: displaced Fracture type: closed Laterality: right Alcohol use disorder, severe, dependence F10.20
== END 2023-01-24 13:21 | disposition home or self-care (01) ==
PROVIDERS: Visit Provider Physician Assistant
DX: S72.441A Displaced fracture of lower epiphysis (separation) of right femur, initial encounter for closed fracture (principal); F10.20 Alcohol dependence, uncomplicated
CPT/HCPCS: 99024

== ENCOUNTER 2023-01-25 13:05 | Outpatient (RCR) | payer MEDICAID, SELFPAY ==
--- NOTE | 2023-01-25 14:07 | MHC.PT.EP ---
[facility] [place] Office [place] Office [place] Office [address] Sandrita Frank [address] [phone] F: [phone] F: [phone] F: [phone] F: [phone] Physical Therapy Plan of Care Date of Evaluation: 01/25/23 Date of Surgery: 01/08/23 Diagnosis: s/p ORIF R femur fracture. -NWB 3 MONTHS Assessment: Patient is a 27 year old R handed male who presents with s/s consistent with ORIF R femur, R knee pain. He does not work but was I with all mobility prior to injury. He does report a history of L tibia fracture this year. Patient past medical history is otherwise non-contributory. Current impairments include pain, posture, ROM, strength, balance, gait mechanics, activity tolerance and functional mobility. Functional limitations include decreased ability to walk, stand, sleep, and perform all daily weight bearing activities. Patient is motivated with good rehab potential. Skilled PT will address impairments and functional limitations in order to achieve goals. Frequency and Duration: The patient will be seen 2x/week for 6 weeks Short Term Goals: I with HEP - 2 weeks AROM 0-130 - 3 weeks Quad set normal - 3 weeks [facility] Goals: hip and knee strength 4/5 grossly - 5 weeks Pain with daily NWB routine - 6 weeks protect repair, NWB throughout - 6 weeks eliminate swelling - 6 weeks Treatment Plan: Modalities to reduce pain, spasms and effusion. Manual therapy to restore motion and function. Therapeutic exercise to improve strength and flexibility. Neuromuscular re-education for posture and balance. Therapeutic activities to return to functional activities of daily living. Electronically signed by: Ky Ornelas, PT Please sign and return to therapist. Thank you for your referral.
--- NOTE | 2023-02-28 11:17 | MHC.PT.DC ---
[facility] [place] Office [place] Office [place] Office [address] Sandrita Frank [address] [phone] F: [phone] F: [phone] F: [phone] F: [phone] Physical Therapy Discharge Report Diagnosis: s/p ORIF R femur fracture. -NWB 3 MONTHS Date of Surgery: 01/08/23 Date of Evaluation: 01/25/23 Date of Discharge: 02/08/23 Treatments to Date: 1 Cancellations to Date: No Shows to Date: Discharge Status: Visit Non-compliance Discharge Summary: Did not attend follow ups. Patient is a 27 year old R handed male who presents with s/s consistent with ORIF R femur, R knee pain. He does not work but was I with all mobility prior to injury. He does report a history of L tibia fracture this year. Patient past medical history is otherwise non-contributory. Current impairments include pain, posture, ROM, strength, balance, gait mechanics, activity tolerance and functional mobility. Functional limitations include decreased ability to walk, stand, sleep, and perform all daily weight bearing activities. Patient is motivated with good rehab potential. Skilled PT will address impairments and functional limitations in order to achieve goals. Electronically signed by: Ky Ornelas, PT Please sign and return to therapist. Thank you for your referral.
== END 2023-02-28 11:17 | disposition home or self-care (01) ==
LOC: HO.PTCHIC 13:05
PROVIDERS: Visit Provider Physician Assistant
DX: S72.44 Fracture of lower epiphysis (separation) of femur (principal)
CPT/HCPCS: 97110; 97161

== ENCOUNTER 2023-02-23 07:38 | Outpatient (REF) | payer MEDICAID, SELFPAY | END 2023-02-23 07:39 | disposition home or self-care (01) | LOC: HO.HOSX 07:38 | PROVIDERS: Visit Provider Orthopaedic Surgery | DX: Z13.89 Encounter for screening for other disorder (principal) ==

== ENCOUNTER 2023-03-02 07:38 | Outpatient (REF) | payer MEDICAID, SELFPAY ==
--- NOTE | ~2023-03-02 | XR_ITS ---
EXAMINATION: XR FEMUR, RIGHT CLINICAL INFORMATION: Fracture COMPARISON: Femur radiographs 01/24/2023 TECHNIQUE: AP and lateral views of the right femur were obtained. FINDINGS: Again seen is ORIF of the comminuted distal femoral fracture in unchanged alignment with some increasing periosteal reaction suggesting ongoing healing. Hip joint space is maintained. Soft tissues are unremarkable. No suprapatellar joint effusion. XR/XR femur RT 2V IMPRESSION: Again seen is ORIF of the comminuted distal femoral fracture in unchanged alignment with some increasing periosteal reaction suggesting ongoing healing.
== END 2023-03-02 07:39 | disposition home or self-care (01) ==
LOC: HO.HOSX 07:38
PROVIDERS: Visit Provider Orthopaedic Surgery
DX: S72.44 Fracture of lower epiphysis (separation) of femur (principal)
CPT/HCPCS: 73552; 99212

== ENCOUNTER 2023-03-02 14:00 | Outpatient (AMB) | payer MEDICAID, SELFPAY ==
--- NOTE | 2023-03-02 14:03 | MHC.OFFVIS ---
Intake Intake Visit Reasons: PO - ORIF right femur 01/08/23 NE Intake Note: Yang is a 27 year old male who presents today for a post op appointment s/p ORIF right femur 01/08/23 NE. He states he has been bearing weight for a few weeks. He reports minimal pain and states he has some sensitivity near his incision site. Allergies No Known Allergies Allergy (Verified 03/02/23 14:19) Medication List - Last Reconciled 03/02/23 by Luna Brooks RN acetaminophen 650 mg (2 x 325 mg) PO Q6H PRN 30 days aspirin 325 mg PO Q12H 42 days docusate sodium 100 mg PO BID 14 days naltrexone 50 mg PO DAILY oxycodone 10 mg (2 x 5 mg) PO Q4H PRN 7 days HPI PO - ORIF right femur 01/08/23 NE HPI Details Doing well with no pain. walking without assistive device PFSH Medical History Alcohol abuse Social History Household Members: Friend(s) Housing: Apartment Patient Tobacco Use Status: Current everyday Tobacco user Tobacco use type: Cigarette Cigarettes Per Day: 5 Second Hand Smoke Exposure: No Substance Use Type: Marijuana service: No Physical Exam Extrem Other: inc c/d/i mild trendelenberg gait but full knee and hip motion Results Reviewed Results Reviewed: I personally reviewed relevant radiographs. Anatomic alignement Healing fracture No hardware complications Assessment & Plan Assessment & Plan (1) Fracture of femur: Code(s): S72.90XA - Unspecified fracture of unspecified femur, initial encounter for closed fracture Qualifiers: Encounter type: initial encounter Femur location: distal epiphysis Fracture alignment: displaced Fracture type: closed Laterality: right Qualified Code(s): S72.441A - Displaced fracture of lower epiphysis (separation) of right femur, initial encounter for closed fracture Plan: Doing extremely well Radiographs demonstrate anatomic alignement I am surprised he is doing so well. He may continue to wbat and should continue to be cautious as it is too early for full bony healing Orders: Orders XR femur RT 2V 03/02/23 S72.90XA - Unspecified fracture of unspecified femur, initial encounter for closed fracture Coding Level of Care Code Global (20472) Diagnoses Closed displaced fracture of distal epiphysis of right femur, initial encounter S72.441A Encounter type: initial encounter Femur location: distal epiphysis Fracture alignment: displaced Fracture type: closed Laterality: right
== END 2023-03-02 14:28 | disposition home or self-care (01) ==
PROVIDERS: Visit Provider Orthopaedic Surgery
DX: S72.441A Displaced fracture of lower epiphysis (separation) of right femur, initial encounter for closed fracture (principal)
CPT/HCPCS: 99024

== ENCOUNTER 2023-04-13 09:15 | Outpatient (REF) | payer MEDICAID, SELFPAY | END 2023-04-13 09:16 | disposition home or self-care (01) | LOC: HO.HOSX 09:15 | PROVIDERS: Visit Provider Orthopaedic Surgery | DX: Z13.89 Encounter for screening for other disorder (principal) ==